=== PATIENT | female | born 1935 | race Caucasian/White ===

== ENCOUNTER → 2016-03-13 | Outpatient (CLI) | payer OTHER ==
--- NOTE | 2016-03-13 16:26 | DX ---
Cervical spine, 2 views History: Cervical fusion. Findings: Anterior cervical fusion plate and screws at C4, C5, C6 and C7 levels with interbody disk f usion plug. Normal alignment at the fusion site. At C3-C4, there is severe degenerative disk disease with moderate disk space narrowing, endplate scle rotic changes, dorsal osteophytes, and minimal retrolisthesis. Impression: 1. Anterior cervical diskectomies and fusion from C4 through C7 with hardware intact. 2. C3-C4 severe degenerative disk disease with dorsal osteophytes and minimal retrolisthesis.
== END ==
LOC: FIMAGING 15:19 → EDSTATUS 15:20 → FIMAGING 15:21
PROVIDERS: ATTEND Physician Assistant
DX: M43.12 Spondylolisthesis, cervical region (principal); M50.31 Other cervical disc degeneration, high cervical region

== ENCOUNTER 2016-05-13 12:54 | Emergency (ER) | payer OTHER ==
--- NOTE | 2016-05-13 14:28 | EDPHY ---
H & P Time Seen by Provider: 05/13/16 14:21 HPI/ROS: CHIEF COMPLAINT: Back pain HISTORY OF PRESENT ILLNESS: The patient is an 81 year old female with osteoporosis, who presents with left sided back pain that started 2 days ago after picking up some heavy luggage. Her pain has progressively worsened over the past 2 days. It is localized to the left ribs and is worse with movement. She took Flexeril last night but found any relief and she took Tramadol today. She has a history of back injury and is concerned she reinjured her back. She denies weakness in her extremities, no incontinence. REVIEW OF SYSTEMS: A comprehensive 10 point review of systems is otherwise negative aside from elements mentioned in the history of present illness. Past Medical/Surgical History: Osteoporosis, Colitis, C4-C7 fusion, Right shoulder surgery. Social History: Retired. Lives in [place]. Smoking Status: Never smoked Physical Exam: General Appearance: Alert, pleasant Eyes: Pupils equal and round, no conjunctival pallor or injection ENT, Mouth: Mucous membranes moist Neck: Normal inspection Respiratory: Lungs are clear to auscultation Cardiovascular: Regular rate and rhythm Gastrointestinal: Abdomen is soft and non-tender Neurological: A&O, nonfocal, normal gait Skin: Warm and dry, no rash Extremities: Nontender, no pedal edema Psychiatric: Mood and affect normal Back: Normal on inspection, no midline tenderness. Tenderness over left lower ribs. Constitutional: Initial Vital Signs Temperature (C) 36.2 C 05/13/16 13:11 Heart Rate 72 05/13/16 13:11 Respiratory Rate 18 05/13/16 13:11 Blood Pressure 153/91 H 05/13/16 13:11 O2 Sat (%) 94 05/13/16 13:11 O2 Delivery Mode Room Air Allergies/Adverse Reactions: Penicillins Allergy (Intermediate, Verified 03/28/13 00:24) Rash Home Medications: Medication Instructions Recorded Budesonide [Entocort Ec] 3 mg PO DAILY PRN 06/24/12 Cholestyramine (with Sugar) 2 gm PO DAILY 06/24/12 [Cholestyramine Packet] Levothyroxine [Synthroid 25 mcg 25 mcg PO DAILY06 06/24/12 (RX)] Loperamide HCl [Imodium 2 mg (OTC)] 2 mg PO DAILY PRN 06/24/12 traZODone [traZODONE 50MG (RX)] 50 - 100 mg PO HS 06/24/12 Ondansetron Odt [Zofran Odt 4 mg 4 mg PO Q4 PRN #20 tab 03/28/13 (RX)] CYCLOBENZAPRINE HCL 05/13/16 Cyclobenzaprine [Flexeril 10 MG 10 mg PO TID PRN #15 tab 05/13/16 (*)] Hydrocodone/APAP 5/325 [Sawyer 1 - 2 tab PO Q4H PRN #15 tab 05/13/16 5/325] traMADol 05/13/16 Medical Decision Making - Diagnostics Imaging: Study: X-ray of the lumbar spine was obtained. Results: No acute fracture. I viewed the images myself on the PACS system. Study: X-ray of the thoracic spine was obtained. Results: No acute fracture. T12 compression fracture compared to MRI lumbar spine on 09/08/14, this is an old finding. I viewed the images myself on the PACS system. Study: X-ray of the ribs was obtained. Results: No fracture. I viewed the images myself on the PACS system. ED Course/Re-evaluation: Imaging was ordered. Differential Diagnosis: Differential diagnosis for back pain includes muscular pain, herniated disc, epidural abscess, discitis, spine fracture, intra-abdominal causes and urinary tract infection. Departure - Departure Disposition: Home, Routine, Self-Care Clinical Impression: Back strain Qualifiers: Encounter type: initial encounter Qualified Code(s): S39.012A - Strain of muscle, fascia and tendon of lower back, initial encounter Condition: Good Instructions: Thoracic Back Strain (ED) Additional Instructions: Take 600mg Ibuprofen every 6-8 hours as needed for pain. For severe pain take Sawyer as prescribed. Referrals: Daniel Gonzalez MD [Primary Care Provider] - As per Instructions Prescriptions: Cyclobenzaprine [Flexeril 10 MG (*)] 10 mg PO TID PRN #15 tab PRN Reason: muscle spasm Hydrocodone/APAP 5/325 [Sawyer 5/325] 1 - 2 tab PO Q4H PRN #15 tab PRN Reason: Pain, Moderate Report Scribed for: Georgina Munoz Report Scribed by: Michelle Madison Date of Report: 05/13/16 Time of Report: 14:28 Physician Review and Approval Statement: 05/13/16 14:28 Portions of this note were transcribed by a medical records receptionist. I personally performed the history, physical exam, and medical decision-making; and confirmed the accuracy of the information in the transcribed note.
[2016-05-13 15:56] VITALS: BP 163/92; PULSE 63; RESP 16; TEMP 97.5; O2SAT 92
== END 2016-05-13 15:45 | disposition home or self-care (01) ==
DX: S39.012A Strain of muscle, fascia and tendon of lower back, initial encounter (principal); X50.0XXA Overexertion from strenuous movement or load, initial encounter

== ENCOUNTER 2017-04-01 18:28 | Emergency (ER) | payer OTHER ==
--- NOTE | 2017-04-01 19:13 | EDPHY ---
H & P Stated Complaint: Cough x 1 wk;dx'd w/bronchitis Time Seen by Provider: 04/01/17 19:12 - Personal History Current Tetanus Diphtheria and Acellular Pertussis (TDAP): Yes Tetanus Vaccine Date: < 10 YEARS - Medical/Surgical History Hx Asthma: Yes Hx Chronic Respiratory Disease: No Hx Diabetes: No Hx Cardiac Disease: No Hx Renal Disease: No Hx Cirrhosis: No Hx Alcoholism: No Hx HIV/AIDS: No Hx Splenectomy or Spleen Trauma: No Other PMH: colitis, c4-c7 fusion, rt shoulder surgery - Social History Smoking Status: Never smoked Constitutional: Initial Vital Signs Temperature (C) 36.4 C 04/01/17 18:35 Heart Rate 61 04/01/17 18:35 Respiratory Rate 18 04/01/17 18:35 Blood Pressure 140/79 H 04/01/17 18:35 O2 Sat (%) 93 04/01/17 18:35 O2 Delivery Mode Room Air Allergies/Adverse Reactions: Penicillins Allergy (Mild, Verified 04/01/17 18:35) Rash Home Medications: Medication Instructions Recorded Levothyroxine [Synthroid 25 mcg 25 mcg PO DAILY06 06/24/12 (RX)] Loperamide HCl [Imodium 2 mg (OTC)] 2 mg PO DAILY PRN 06/24/12 traZODone [traZODONE 50MG (RX)] 50 - 100 mg PO HS 06/24/12 Albuterol Hfa Anes Only [Proair 1 mdi 04/01/17 Hfa Icu (*)] Medical Decision Making - Diagnostics Imaging Results: Imaging Impressions Chest X-Ray 04/01/17 19:18 Impression: Findings suggestive of COPD/chronic bronchitis are noted with no definite superimposed pneumonia. Imaging: I viewed and interpreted images myself ED Course/Re-evaluation: CHIEF COMPLAINT: Cough, fever, myalgias HISTORY OF PRESENT ILLNESS: The patient is an 82 y/o female with recent diagnosis of bronchitis complaining of worsening cough. She developed symptoms one week ago and was evaluated by her PCP. Her friend who she has spent time around is ill with the flu. The patient has associated chills, fever, and myalgias. She has difficulty breathing during coughing fits. She has been using albuterol inhaler without improvement and codeine cough syrup for cough. She has mild relief when inhaling steam. No nausea, vomiting, abdominal pain, diarrhea. REVIEW OF SYSTEMS: A 10 point review of systems was performed and is negative with the exception of the elements mentioned in the history of present illness. PHYSICAL EXAM: HR, BP, O2 Sat, RR. Temp noted General Appearance: Alert, well hydrated, appropriate, and non-toxic appearing. Head: Atraumatic without scalp tenderness or obvious injury Eyes: Pupils equal, round, reactive to light and accommodation, EOMI, no trauma , no injection. Nose: Atraumatic, no rhinorrhea, clear. Throat: There is no erythema or exudates, no lesions, normal tonsils, mucus membranes moist. Neck: Supple, nontender, no lymphadenopathy. Respiratory: No retractions, no distress, no wheezes, and no accessory muscle use. Coarse rhonchi throughout. Cardiovascular: Regular rate and rhythm, no murmurs, rubs, or gallops. Good capillary refill all extremities. Gastrointestinal: Abdomen is soft, nontender, non-distended, no masses, no rebound, no guarding, no peritoneal signs. Musculoskeletal: Normal active ROM of all extremities, atraumatic. Neurological: Alert, appropriate, and interactive. The patient has non-focal cranial nerves, motor, sensory, and cerebellar exam. Skin: No rashes, good turgor, no nodules on palpation. Past medical history: Colitis Past surgical history: cervical fusion, shoulder surgery Family history: Noncontributory Social history: Lives in [place]. Retired. PCP: Dr. Gonzalez. DIAGNOSTICS/PROCEDURES/CRITICAL CARE TIME: Chest x-ray: bronchitis. DIFFERENTIAL DIAGNOSIS: The differential diagnosis for the patient's fever included but was not limited to pneumonia, urinary tract infection, viral syndrome, meningitis, and sepsis. MEDICAL DECISION MAKING: This is an 82 y/o female with recent diagnosis of bronchitis who presents with worsening cough, fever, and myalgias. She has coarse rhonchi throughout on auscultation. Symptoms are consistent with possible flu or pneumonia. Plan for IV, labs, flu swab, chest x-ray, and symptom management. Duo neb, 10mg PO Decadron, and 1L IV NS administered. Chest x-ray shows bronchitis. Flu swab is positive. Have recommended continuation of her current treatments as prescribed by Dr. Gonzalez. Follow up and return precautions discussed. She is comfortable with this plan. - Data Points Laboratory Results: 04/01/17 19:25 Nasal Influenza A PCR FLU A DETECTED H (NEGATIVE) Nasal Influenza B PCR NEGATIVE FOR FLU B (NEGATIVE) RSV (PCR) NEGATIVE FOR RSV (NEGATIVE) Medications Given: Discontinued Medications Albuterol/Ipratropium (Duoneb) 3 ml IH EDNOW ONE Stop: 04/01/17 19:19 Last Admin: 04/01/17 19:23 Dose: 3 ml Dexamethasone (Decadron Injection) 10 mg PO EDNOW ONE Stop: 04/01/17 19:19 Last Admin: 04/01/17 19:23 Dose: 10 mg Departure - Departure Disposition: Home, Routine, Self-Care Clinical Impression: Influenza Acute bronchitis Qualifiers: Bronchitis organism: unspecified organism Qualified Code(s): J20.9 - Acute bronchitis, unspecified Condition: Good Instructions: Influenza (ED), Influenza (DC), Acute Bronchitis (ED) Additional Instructions: 1. Continue albuterol inhaler codeine cough syrup as prescribed for cough. 2. Increase fluid intake. Rest. Use Tylenol and ibuprofen for fever and achiness. 3. Follow up with your primary care provider for unimproved symptoms. 4. Return to the ED for worsening of condition. Adult Pain & Fever Control: We recommend Acetaminophen (Tylenol) and Ibuprofen (Motrin,Advil) for pain and fever control. When fever is high or pain severe, both drugs can be used at the same time, but at different intervals. Please note the time differences. Your dose is: Acetaminophen 650mg every 4 to 6 hours Ibuprofen 600mg every 6-8 hours with food Note: do not take Acetaminophen with Hydrocodone (Vicodin, Lortab) or Oxycodone (Percocet). These medications also contain Acetaminophen. No more than 3000mg of Acetaminophen should be taken in 24 hours (for an adult). Referrals: Daniel Gonzalez MD [Primary Care Provider] - As per Instructions Report Scribed for: Aayush Morrow Report Scribed by: Tory Darden Date of Report: 04/01/17 Time of Report: 19:21
[2017-04-01] MEDS ORDERED: IPRATROPIUM/ALBUTEROL 3 ML DEYVIAL IH ONE (19:18)
[2017-04-01] MEDS ORDERED: DEXAMETHASONE 10 MG/ML VIAL PO ONE (19:18)
[2017-04-01 20:29] VITALS: BP 133/80; PULSE 89; RESP 16; TEMP 98.6; O2SAT 95
== END 2017-04-01 20:29 | disposition home or self-care (01) ==
DX: J20.9 Acute bronchitis, unspecified (principal); J10.1 Influenza due to other identified influenza virus with other respiratory manifestations; J45.909 Unspecified asthma, uncomplicated
CPT/HCPCS: 71046; 99284; J1100

== ENCOUNTER → 2017-04-04 | Outpatient (CLI) | payer OTHER | LOC: FIMAGING 09:59 | PROVIDERS: ATTEND Physician Assistant | DX: M48.02 Spinal stenosis, cervical region (principal); M43.13 Spondylolisthesis, cervicothoracic region; M50.33 Other cervical disc degeneration, cervicothoracic region ==

== ENCOUNTER → 2017-04-06 | Outpatient (CLI) | payer OTHER | LOC: FIMAGING 14:45 | PROVIDERS: ATTEND Neurological Surgery | DX: M47.894 Other spondylosis, thoracic region (principal); M46.94 Unspecified inflammatory spondylopathy, thoracic region; M47.812 Spondylosis without myelopathy or radiculopathy, cervical region; M46.92 Unspecified inflammatory spondylopathy, cervical region ==

== ENCOUNTER → 2018-02-07 | Outpatient (CLI) | payer OTHER | LOC: FIMAGING 13:37 | PROVIDERS: ATTEND Physician Assistant | DX: M48.02 Spinal stenosis, cervical region (principal); M43.12 Spondylolisthesis, cervical region; M47.894 Other spondylosis, thoracic region; M47.892 Other spondylosis, cervical region; Z98.1 Arthrodesis status ==

== ENCOUNTER → 2018-07-23 | Outpatient (CLI) | payer OTHER | LOC: FIMAGING 19:20 | PROVIDERS: ATTEND Physician Assistant | DX: M48.02 Spinal stenosis, cervical region (principal); M50.11 Cervical disc disorder with radiculopathy, high cervical region; Z98.1 Arthrodesis status; M51.24 Other intervertebral disc displacement, thoracic region; M51.34 Other intervertebral disc degeneration, thoracic region; M47.9 Spondylosis, unspecified ==